=== PATIENT | female | born 1975 | race Caucasian/White ===

== ENCOUNTER → 2016-12-31 | Outpatient (CLI) | payer MEDICARE | LOC: M OUTALCOH 13:15 | PROVIDERS: ATTEND Psychiatry & Neurology Psychiatry | DX: F10.20 Alcohol dependence, uncomplicated (principal); F11.10 Opioid abuse, uncomplicated ==

== ENCOUNTER 2017-01-11 09:52 | Outpatient (RCR) | payer MEDICAID | END 2017-01-18 | LOC: M OUTALCOH 09:52 | PROVIDERS: ATTEND Psychiatry & Neurology Psychiatry | DX: F10.20 Alcohol dependence, uncomplicated (principal); F11.10 Opioid abuse, uncomplicated ==

== ENCOUNTER → 2017-05-09 | Outpatient (REF) | payer MEDICAID ==
[2017-05-09 19:44] LABS: BASO # 0.1 10^3/uL (0.0-0.2); BASO % 0.6 % (0.0-1.0); EOS # 0.1 10^3/uL (0.0-0.50); EOS % 0.9 % (0.0-3.0); IMMATURE GRANULOCYTE % 0.2 % (0-0); LYMPH # 2.3 10^3/uL (1.5-4.5); LYMPH % 28.1 % (24.0-44.0); MEAN CORPUSCULAR HEMOGLOBIN 29.5 pg (27.0-33.0); MEAN CORPUSCULAR VOLUME 92.2 fl (80.0-96.0); MONO # 0.6 10^3/uL (0.0-0.8); NEUTROPHILS # 5.2 10^3/uL (1.8-7.7); NEUTROPHILS % 63.2 % (36.0-66.0); PLATELET COUNT, AUTOMATED 516 10^3/uL (150-450); RED CELL DISTRIBUTION WIDTH 14.1 % (11.5-14.5); WHITE BLOOD COUNT 8.2 10^3/uL (4.0-10.0)
[2017-05-09 20:29] LABS: FOLLICLE STIMULATING HORMONE 15.7 mIU/mL; LUTEINIZING HORMONE 45.4 mIU/mL
[2017-05-09 20:38] LABS: FREE T4 0.9 NG/DL (0.76-1.46)
== END ==
LOC: M LAB REF 17:42
PROVIDERS: ATTEND Advanced Practice Midwife
DX: N92.1 Excessive and frequent menstruation with irregular cycle (principal)

== ENCOUNTER 2017-07-05 08:10 | Day surgery (SDC) | payer OTHER ==
[~2017-07-05] VITALS: Ht 167.6 cm; Wt 119.7 kg
[~2017-07-05 08:10] MED LIST: BIOT50004 PO; BUPR150T3 PO; GABA-283 PO; HYDR-3713 PO; MAGN400C2 PO; ONE1MIS PO; PARO20TA3 PO; PREM0.6254 PO; TRIA1OI TOP; VITA-176 PO; ZOLP10TA2 PO
[2017-07-05] MEDS ORDERED: LR 1,000 ML IV ONE (08:45)
[2017-07-05] MEDS ORDERED: ACETAMINOPHEN 650 MG SUPP PR ONE (08:45)
[2017-07-05 08:46] LABS: MEAN CORPUSCULAR HEMOGLOBIN 30.1 pg (27.0-33.0); MEAN CORPUSCULAR HGB CONC 32.8 g/dl (32.0-36.5); MEAN CORPUSCULAR VOLUME 91.8 fl (80.0-96.0); PLATELET COUNT, AUTOMATED 360 10^3/uL (150-450); RED CELL DISTRIBUTION WIDTH 14.9 % (11.5-14.5); WHITE BLOOD COUNT 7.5 10^3/uL (4.0-10.0)
[2017-07-05 09:05] LABS: CONTROL LINE HCG INT CTR LINE PRESENT
[2017-07-05] MEDS ORDERED: PERC5TAB12 PO (10:36)
[2017-07-05] MEDS ORDERED: MIDAZOLAM INJ 2 MG/2 ML VIAL (J2250) As Ordered ONE ×2 (11:50→12:19)
[2017-07-05] MEDS ORDERED: PROPOFOL 200 MG/20 ML VIAL As Ordered ONE ×3 (11:51→12:28)
[2017-07-05] MEDS ORDERED: fentaNYL 100 MCG/2 ML INJECTION (J3010) As Ordered ONE (11:52)
[2017-07-05] MEDS ORDERED: ONDANSETRON 4MG/2ML VIAL (J2405) As Ordered ONE (12:10)
[2017-07-05] MEDS ORDERED: dexameTHASONE 4 MG/ML 1ML VIAL (J1100) As Ordered ONE (12:10)
[2017-07-05] MEDS ORDERED: KETOROLAC 60 MG/2 ML VIAL (J1885) As Ordered ONE (12:10)
[2017-07-05] MEDS ORDERED: ACETAMINOPHEN 650 MG SUPP As Ordered ONE (12:10)
[2017-07-05 14:00] VITALS: BP 145/72
--- NOTE | 2017-07-08 08:36 | RO ---
DATE OF PROCEDURE: 07/05/2017 PREOPERATIVE DIAGNOSIS: Menometrorrhagia. POSTOPERATIVE DIAGNOSIS: Menometrorrhagia. PROCEDURE: 1. Hysteroscopy. 2. NovaSure endometrial ablation. SURGEON: Dr. Dilan Resendez DRY ICE MACHINE OPERATOR: ANESTHESIA: IV sedation. COMPLICATIONS: None. ESTIMATED BLOOD LOSS: Less than 10 mL. FINDINGS: Normal appearing cavity on hysteroscopy with some fluffy endometrium noted. Lily is a 42-year-old female with an extensive history of menometrorrhagia. After counseling in the office, a decision was made to proceed with hysteroscopy and endometrial ablation. The patient had had prior endometrial biopsy which was negative. PROCEDURE: After obtaining informed consent, the patient was taken to the operating room where the anesthetic was found to be adequate. She was then draped and prepped in the usual sterile fashion in dorsal lithotomy position. Straight catheter of the bladder was performed for approximately 100 mL of clear urine. We then placed a weighted speculum in the posterior fornix of the vagina. The anterior lip of the cervix was then grasped with a single-tooth tenaculum. The uterus was sounded to approximately 10 cm, giving a total cavity length of 6.5. At this point, the cervix was serially dilated. A hysteroscope was inserted. Normal appearing endometrial cavity noted with a fluffy endometrium. The hysteroscope was removed. The NovaSure endometrial ablation device was then inserted. The cavity length adjusted to 6.5. The cavity width to 4. After passing a cavity assessment, the device was enabled and the endometrial ablation cycle was then started. The cycle lasted approximately 65 seconds. Good ablative process noted. The patient tolerated the procedure well. She was then transferred to the recovery room in stable condition.
== END 2017-07-05 14:00 | disposition home or self-care (01) ==
LOC: M SDC 08:10
PROVIDERS: ATTEND Obstetrics & Gynecology
DX: N92.4 Excessive bleeding in the premenopausal period (principal); R23.3 Spontaneous ecchymoses; M12.9 Arthropathy, unspecified; F41.9 Anxiety disorder, unspecified; F32.9 Major depressive disorder, single episode, unspecified; Z91.048 Other nonmedicinal substance allergy status; Z79.899 Other long term (current) drug therapy; Z98.51 Tubal ligation status; Z98.84 Bariatric surgery status

== ENCOUNTER → 2018-05-14 | Outpatient (CLI) | payer OTHER ==
[2018-05-14 13:53] LABS: HEMATOCRIT 36.8 % (36.0-47.0); HEMOGLOBIN 11.8 g/dl (12.0-15.5); MEAN CORPUSCULAR HGB CONC 32.1 g/dl (32.0-36.5); MEAN CORPUSCULAR VOLUME 96.6 fl (80.0-96.0); PLATELET COUNT, AUTOMATED 361 10^3/uL (150-450); RED BLOOD COUNT 3.81 10^6/uL (4.00-5.40); RED CELL DISTRIBUTION WIDTH 14.4 % (11.5-14.5); WHITE BLOOD COUNT 6.3 10^3/uL (4.0-10.0)
[2018-05-14 13:59] LABS: ALBUMIN 3.2 GM/DL (3.2-5.2); ALBUMIN/GLOBULIN RATIO 0.97 (1.00-1.93); ALKALINE PHOSPHATASE 59 U/L (45-117); ALT/SGPT 17 U/L (12-78); ANION GAP 7 MEQ/L (8-16); AST/SGOT 12 U/L (7-37); BILIRUBIN,TOTAL 0.3 MG/DL (0.2-1.0); BLOOD UREA NITROGEN 12 MG/DL (7-18); CALCIUM LEVEL 8.5 MG/DL (8.5-10.1); CARBON DIOXIDE LEVEL 27 MEQ/L (21-32); CHLORIDE LEVEL 106 MEQ/L (98-107); CREATININE FOR GFR 0.69 MG/DL (0.55-1.30); FERRITIN 15 NG/ML (8-252); GLOMERULAR FILTRATION RATE > 60.0 (>58); GLUCOSE, FASTING 88 MG/DL (70-100); IRON (FE) 62 UG/DL (50-170); PERCENT SATURATION 15.9 % (13.2-45.0); POTASSIUM SERUM 4.3 MEQ/L (3.5-5.1); SODIUM LEVEL 140 MEQ/L (136-145); TOTAL IRON BINDING CAPACITY 389 UG/DL (250-450); TOTAL PROTEIN 6.5 GM/DL (6.4-8.2)
[2018-05-14 14:03] LABS: TOTAL 25(OH) VITAMIN D 31.2 NG/ML (30.0-100.0)
[2018-05-20 00:06] LABS: VITAMIN B1 LEVEL WHOLE BLOOD 161.3 nmol/L (66.5-200.0)
== END ==
LOC: M SMT 09:18
DX: K91.2 Postsurgical malabsorption, not elsewhere classified (principal)
CPT/HCPCS: 83550

== ENCOUNTER 2019-02-11 13:33 | Emergency (ER) | payer OTHER ==
[~2019-02-11] VITALS: Ht 165.1 cm; Wt 100.0 kg
[~2019-02-11 13:33] MED LIST changes: -GABA-283 PO; +GABA-845 PO; +PERC5TAB12 PO
[2019-02-11 13:59] LABS: BASO % 0.4 % (0.0-1.0); EOS % 0.4 % (0.0-3.0); HEMATOCRIT 36.8 % (36.0-47.0); HEMOGLOBIN 11.9 g/dl (12.0-15.5); LYMPH # 2.9 10^3/uL (1.5-4.5); LYMPH % 27.9 % (24.0-44.0); MEAN CORPUSCULAR HEMOGLOBIN 31.1 pg (27.0-33.0); MEAN CORPUSCULAR HGB CONC 32.3 g/dl (32.0-36.5); MEAN CORPUSCULAR VOLUME 96.1 fl (80.0-96.0); MONO # 0.6 10^3/uL (0.0-0.8); MONO % 6.1 % (0.0-5.0); NEUTROPHILS # 6.7 10^3/uL (1.8-7.7); PLATELET COUNT, AUTOMATED 410 10^3/uL (150-450); RED BLOOD COUNT 3.83 10^6/uL (4.00-5.40); WHITE BLOOD COUNT 10.3 10^3/uL (4.0-10.0)
[2019-02-11 14:10] LABS: PROTHROMBIN TIME 12.9 SECONDS (11.8-14.0)
[2019-02-11 14:26] LABS: ALBUMIN 3.4 GM/DL (3.2-5.2); ALT/SGPT 18 U/L (12-78); BILIRUBIN,TOTAL 0.4 MG/DL (0.2-1.0); BLOOD UREA NITROGEN 7 MG/DL (7-18); CALCIUM LEVEL 8.6 MG/DL (8.5-10.1); CARBON DIOXIDE LEVEL 30 MEQ/L (21-32); CHLORIDE LEVEL 106 MEQ/L (98-107); CK-MB VALUE MASS < 1.0 NG/ML (<3.6); CPK CREATINE PHOSPHOKINASE 71 U/L (26-192); CREATININE FOR GFR 0.84 MG/DL (0.55-1.30); GLOMERULAR FILTRATION RATE > 60.0 (>58); GLUCOSE, FASTING 84 MG/DL (70-100); LIPASE 160 U/L (73-393); MB/CK RELATIVE INDEX 1.41 (< OR =4); POTASSIUM SERUM 3.8 MEQ/L (3.5-5.1); SODIUM LEVEL 141 MEQ/L (136-145); TOTAL PROTEIN 7.2 GM/DL (6.4-8.2); TROPONIN I < 0.02 NG/ML (< 0.10)
--- NOTE | 2019-02-11 15:07 | REP ---
CHEST, SINGLE VIEW: There is no evidence of acute infiltrate. No pleural effusion is seen. The heart is normal in size. The mediastinal silhouette is unremarkable. The visualized osseous structures are intact. IMPRESSION: No acute pulmonary disease. Electronically Signed by Adolfo Pickens MD 02/12/2019 11:09 A
[2019-02-11 15:15] VITALS: BP 146/79
--- NOTE | 2019-02-11 20:42 | ECGEPIP ---
[facility] - ED Test Date: 2019-02-11 Pat Name: NELLY COLBERT Department: Room: - Gender: Female [employer] Room Attendant: TC : 1975 Requested By: Yariel Bocanegra Order Number: [id number] Reading MD: Yariel Gary Measurements Intervals Bastian Rate: 69 P: ND: 157 QRS: 20 QRSD: 102 T: 14 QT: 377 QTc: 407 Interpretive Statements SINUS RHYTHM LEFT ATRIAL ENLARGEMENT NO PRIORS FOR COMPARISON Electronically Signed on 02-11-2019 20:42:31 EDT by Yariel Gary
== END 2019-02-11 16:39 | disposition home or self-care (01) ==
LOC: M ED 13:33
DX: R20.2 Paresthesia of skin (principal); I51.7 Cardiomegaly; R07.89 Other chest pain; I10 Essential (primary) hypertension; E78.5 Hyperlipidemia, unspecified; G89.29 Other chronic pain; M54.2 Cervicalgia; M54.9 Dorsalgia, unspecified; K21.9 Gastro-esophageal reflux disease without esophagitis; F41.9 Anxiety disorder, unspecified; G47.00 Insomnia, unspecified; F32.9 Major depressive disorder, single episode, unspecified; Z98.84 Bariatric surgery status; Z79.899 Other long term (current) drug therapy; Z91.89 Other specified personal risk factors, not elsewhere classified

== ENCOUNTER → 2021-02-03 | Outpatient (CLI) | payer OTHER ==
[~2021-02-03] MED LIST changes: +BUPR150T12 PO; -BUPR150T3 PO; +GABA-283 PO; -GABA-845 PO; +GABA600T4 PO; +HYDR-3719 PO; +LEVOTAB10 PO; +METO25TA4 PO; +QC F0.52 PO
--- NOTE | 2021-02-03 14:32 | REP ---
INDICATION: THYROITOXICOSIS. COMPARISON: None. TECHNIQUE: Bilateral thyroid ultrasound FINDINGS: The right lobe of the thyroid gland measures 5 x 1.6 x 1.3 cm and the left lobe measures 4.8 x 1.6 x 1 cm. The isthmus measures 3 mm. There is an incidental 5 mm sized solid nodule in the upper pole right lobe. There is an incidental 3 mm size nodule in the inferior pole the left lobe. IMPRESSION: Tiny likely incidental findings as described above. Follow-up as clinically relevant. <Electronically signed by Robel Plummer > 02/03/21 [id number]
== END ==
LOC: M RAD 12:11
PROVIDERS: ATTEND Nurse Practitioner Family
DX: E05.90 Thyrotoxicosis, unspecified without thyrotoxic crisis or storm (principal)

== ENCOUNTER → 2021-03-14 | Outpatient (CLI) | payer OTHER ==
[2021-03-14 18:15] LABS: FREE T4 0.74 NG/DL (0.76-1.46); THYROID STIMULATING HORMONE 2.18 uIU/ML (0.358-3.740)
[2021-03-14 18:19] LABS: TOTAL T3 78.1 NG/DL (60.0-181.0)
== END ==
LOC: M PLALAB 14:55
PROVIDERS: ATTEND Internal Medicine Endocrinology, Diabetes & Metabolism
DX: E04.1 Nontoxic single thyroid nodule (principal)

== ENCOUNTER → 2021-03-15 | Outpatient (CLI) | payer OTHER ==
--- NOTE | 2021-03-16 15:29 | REP ---
INDICATION: THROITOXICOSIS. COMPARISON: None. TECHNIQUE/RADIOTRACER AND DOSE: After the oral administration of 347 uCi of iodine 123 thyroid scan and uptake was performed. FINDINGS: There is patchy distribution of the radiotracer throughout the thyroid. There are no hot or cold nodules. There is no scintigraphic evidence of thyromegaly. The 24 hour uptake value is 20.21%. This is slightly below the lower limit of normal being 25%. 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 <Electronically signed by Robel Plummer > 03/16/21 [id number]
== END ==
LOC: M RAD 14:27
PROVIDERS: ATTEND Nurse Practitioner Family
DX: E05.00 Thyrotoxicosis with diffuse goiter without thyrotoxic crisis or storm (principal)
CPT/HCPCS: 78012; A9516

== ENCOUNTER → 2021-05-04 | Outpatient (CLI) | payer OTHER ==
--- NOTE | 2021-05-04 17:16 | REPMRS ---
Patient History The patient states she had a clinical breast exam in March 2021. Family history of colorectal cancer at age 46 in paternal grandmother. Tomosynthesis is performed. Volpara breast density is b. [facility] lifetime risk of breast cancer 9.0%. Patient states no breast complaints today. Patient has signed MRS History Sheet. Digital Woman Screen Mammo: May 04, 2021 - Exam #: [id number] Bilateral CC and MLO view(s) were taken. Technologist: Emily Campos Technologist Prior study comparison: January 12, 2020, bilateral digital mammo screening bilat, performed at [facility]. October 09, 2018, bilateral digital mammo screening bilat, performed at [facility]. FINDINGS: There are scattered fibroglandular densities. There has been no change in the appearance of the mammogram from the prior studies. There is a mild amount of residual fibroglandular tissue which is fairly symmetric. There is no interval development of dominant mass, architectural distortion, or clustered microcalcification suggestive of malignancy. Assessment: BI-RADS/ACR category 1 mammogram. Negative Mammogram. Recommendation Routine screening mammogram in 1 year (for women over age 40). This mammogram was interpreted with the aid of an FDA-approved computer-aided dectection system. Electronically Signed By: Adolof Pickens MD 05/04/21 [id number]
== END ==
LOC: M WHC 15:59
PROVIDERS: ATTEND Advanced Practice Midwife
DX: Z12.31 Encounter for screening mammogram for malignant neoplasm of breast (principal)

== ENCOUNTER → 2022-03-09 | Outpatient (CLI) | payer OTHER | LOC: M SOG 07:58 | PROVIDERS: ATTEND Orthopaedic Surgery Adult Reconstructive Orthopaedic Surgery | DX: M25.561 Pain in right knee (principal) ==

== ENCOUNTER → 2022-05-10 | Outpatient (CLI) | payer OTHER ==
[~2022-05-10] MED LIST changes: +EPIN0.3I11
== END ==
LOC: M PLAIMG 08:00 → M PLARAD 08:00
PROVIDERS: ATTEND Orthopaedic Surgery Adult Reconstructive Orthopaedic Surgery
DX: M23.91 Unspecified internal derangement of right knee (principal)

== ENCOUNTER → 2022-08-30 | Outpatient (CLI) | payer OTHER ==
[~2022-08-30] MED LIST changes: -EPIN0.3I11; +EPIN0.3I11 IM; +VITA100093 PO
== END ==
LOC: M LABSMTC 11:12
PROVIDERS: ATTEND Anesthesiology
DX: Z01.812 Encounter for preprocedural laboratory examination (principal); Z20.822 Contact with and (suspected) exposure to COVID-19

== ENCOUNTER 2022-09-04 11:51 | Day surgery (SDC) | payer OTHER ==
[~2022-09-04] VITALS: Ht 167.6 cm; Wt 109.8 kg
[~2022-09-04 11:51] MED LIST changes: +ACETAMINOPHEN 500 MG TAB PO ONE; +GABAPENTIN 300 MG CAP PO ONE; +ONDANSETRON 4MG 2ML VIAL IV ONE
[2022-09-04] MEDS ORDERED: LR 1,000 ML IV SCH ×2 (12:20→17:05)
[2022-09-04] MEDS ORDERED: MIDAZOLAM INJ 2MG/2ML VIAL As Ordered ONE (13:03)
[2022-09-04] MEDS ORDERED: fentaNYL 250 MCG/5 ML INJECTION As Ordered ONE (13:03)
[2022-09-04] MEDS ORDERED: ONDANSETRON 4MG 2ML VIAL As Ordered ONE (13:04)
[2022-09-04] MEDS ORDERED: LIDOCAINE 2% 100MG/5ML SDV (FOR ANES.) As Ordered ONE (13:04)
[2022-09-04] MEDS ORDERED: propofoL 200 MG/20 ML VIAL As Ordered ONE (13:04)
[2022-09-04] MEDS ORDERED: EPINEPHrine 1MG/ML INJ 30ML MD-VIAL As Ordered ONE (15:43)
[2022-09-04] MEDS ORDERED: BUPIVACAINE/EPIN 0.5% 30ML VIAL As Ordered ONE (15:43)
[2022-09-04] MEDS ORDERED: ePHEDrine SULFATE 25 MG/5 ML(5MG/ML) SYRINGE As Ordered ONE (16:15)
[2022-09-04] MEDS ORDERED: HYDROMORPHONE HCL 0.5 MG/ 0.5 ML SYRINGE IV PRN (17:05)
[2022-09-04] MEDS ORDERED: ONDANSETRON 4MG 2ML VIAL IV PRN (17:05)
[2022-09-04] MEDS ORDERED: fentaNYL 100 MCG/2 ML INJECTION IV PRN (17:05)
[2022-09-04] MEDS ORDERED: SENN8.6T58 PO (17:14)
[2022-09-04] MEDS ORDERED: OXYC-517 PO (17:14)
[2022-09-04] MEDS: oxyCODONE 5MG TAB PO PRN ×2 (17:25→18:01)
[2022-09-04 19:20] VITALS: BP 133/71
== END 2022-09-04 19:33 | disposition home or self-care (01) ==
LOC: M SDC 11:51
PROVIDERS: ATTEND Orthopaedic Surgery Adult Reconstructive Orthopaedic Surgery
DX: M23.200 Derangement of unspecified lateral meniscus due to old tear or injury, right knee (principal); I10 Essential (primary) hypertension; R94.31 Abnormal electrocardiogram [ECG] [EKG]; D64.9 Anemia, unspecified; E04.1 Nontoxic single thyroid nodule; F32.A Depression, unspecified; F41.9 Anxiety disorder, unspecified; G47.9 Sleep disorder, unspecified; Z98.84 Bariatric surgery status; Z91.040 Latex allergy status; Z91.048 Other nonmedicinal substance allergy status; Z91.018 Allergy to other foods; Z79.899 Other long term (current) drug therapy
CPT/HCPCS: 29881; J1100; J2250; J2405; J3010

== ENCOUNTER → 2023-08-29 | Outpatient (CLI) | payer OTHER ==
[~2023-08-29] MED LIST changes: -ACETAMINOPHEN 500 MG TAB PO ONE; -BIOT50004 PO; +BIOT5CAP8 PO; -GABA-283 PO; +GABA-284 PO; -GABAPENTIN 300 MG CAP PO ONE; -ONDANSETRON 4MG 2ML VIAL IV ONE; +OXYC-517 PO; +SENN8.6T58 PO
== END ==
LOC: M WHC 12:58
PROVIDERS: ATTEND Obstetrics & Gynecology
DX: Z12.31 Encounter for screening mammogram for malignant neoplasm of breast (principal)